=== PATIENT | female | born 1940 | race Caucasian/White ===

== ENCOUNTER 2018-07-01 15:07 | Inpatient (IN) | payer OTHER, BC ==
[~2018-07-01] VITALS: Ht 160 cm; Wt 57.2 kg
[~2018-07-01 15:07] MED LIST: NORCO 5-325 TA1 EACH PO
[2018-07-01 15:08] VITALS: BP 130/72
[2018-07-01] MEDS ORDERED: TEGRETOL XR400 MG PO (15:24)
[2018-07-01] MEDS ORDERED: [UNRECOGNIZED DRUG - REMARK] (15:26)
[2018-07-01] MEDS ORDERED: PEPCID20 MG PO (15:28)
[2018-07-01] MEDS ORDERED: BENICAR40 MG PO (15:28)
[2018-07-01] MEDS ORDERED: SPIRONOLACTONE25 M1 PO (15:28)
[2018-07-01] MEDS ORDERED: CRESTOR20 MG PO (15:29)
[2018-07-01] MEDS ORDERED: CLONIDINE HCL0.1 MG PO (15:29)
[2018-07-01] MEDS ORDERED: NORVASC2.5 MG PO (15:30)
[2018-07-01] MEDS ORDERED: LOPRESSOR100 M1 PO (15:31)
[2018-07-01 15:39] LABS: ABSOLUTE NEUTROPHILS 6.7 thou/uL (1.4-8.2); BASOPHILS 1.4 % (0.0-2.0); EOSINOPHILS 0.4 % (0.0-3.0); HEMATOCRIT 37.9 % (37.0-47.0); HEMOGLOBIN 12.2 gm/dL (12.0-15.0); LYMPHOCYTES 5.8 % (24.0-44.0); MCH 30.6 pg (26.0-34.0); MCHC 32.2 g/dL (28.0-37.0); MCV 95.2 fL (80.0-100.0); MONOCYTES 4.3 % (1.0-8.0); PLATELET COUNT 256 thou/uL (150-400); POLYS 88.1 % (36.0-66.0); RBC 3.98 mil/uL (4.20-5.00); RDW 14.9 % (10.5-14.5); WBC 7.6 thou/uL (4.0-11.0)
[2018-07-01 15:51] LABS: ANION GAP 19 mmol/L (7-16); BUN 24 mg/dL (7-18); CALCIUM 8.9 mg/dL (8.5-10.1); CHLORIDE 102 mmol/L (98-107); CO2 21 mmol/L (21-32); CREATININE 1.2 mg/dL (0.6-1.0); GLUCOSE 109 mg/dL (74-106); POTASSIUM 3.2 mmol/L (3.5-5.1); SODIUM 142 mmol/L (136-145)
[2018-07-01 15:52] LABS: URINE CLARITY SL HAZY; URINE COLOR YELLOW; URINE GLUCOSE-RANDOM* NEGATIVE (Negative); URINE KETONES 3+ (Negative); URINE PROTEIN (DIPSTICK) TRACE (Negative)
[2018-07-01 15:53] LABS: ICTOTEST (BILI CONFIRMATORY) Negative (Negative); URINE BILIRUBIN NEGATIVE (Negative); URINE BLOOD NEGATIVE (Negative); URINE LEUKOCYTES-REFLEX 1+ (Negative); URINE NITRITE-REFLEX NEGATIVE (Negative); URINE UROBILINOGEN 0.2 E.U./dl (0.2-1.0)
[2018-07-01 15:59] LABS: AMP/METHAMP Negative (Negative); BARBITURATES Negative (Negative); BENZODIAZEPINES Negative (Negative); COCAINE Negative (Negative); METHADONE Negative (Negative); OPIATES Negative (Negative); PCP Negative (Negative)
[2018-07-01 16:01] LABS: ALBUMIN 3.6 g/dL (3.4-5.0); MAGNESIUM 1.7 mg/dL (1.8-2.4); SALICYLATE 3.6 mg/dL (2.8-20.0); SGOT 26 U/L (15-37); SGPT 16 U/L (30-65); TOTAL BILIRUBIN 0.7 mg/dL (<0.1-1.0); TOTAL PROTEIN 6.7 g/dL (6.4-8.2); TROPONIN-I <0.06 ng/mL (<0.06)
[2018-07-01 16:03] LABS: AMORPHOUS URATES Moderate /LPF (None Seen); BACTERIA-REFLEX None Seen /HPF (None Seen); HYALINE CASTS 0-3 Few /LPF (None Seen); SQUAMOUS None Seen /LPF (0-3); URINE RBC 0-2 Rare /HPF (0-2)
[2018-07-01 17:20] VITALS: BP 147/90
--- NOTE | 2018-07-01 17:30 | NUR ---
AFFIDAVITS WRIITEN AND NOTORIZED BY RN, FISHING TOOL TECHNICIAN OIL WELL, SON, AND DAUGHTER
[2018-07-01 17:40] VITALS: BP 147/90
[2018-07-01 19:50] VITALS: BP 186/104
--- NOTE | 2018-07-02 04:41 | NUR ---
patients cares were assumed at 2023 when patient was brought up from ED. patient was asssessed and meds were passed and orded. Hpurly rounding was dome patient did appaer to be a sleep. when this patient first came in she was very agitated. nursing was able to calm her with in the hour. bed alarm is on and the bed is in a low and locked position
[2018-07-02 06:09] LABS: CALCIUM 8.3 mg/dL (8.5-10.1); POTASSIUM 3.3 mmol/L (3.5-5.1)
--- NOTE | 2018-07-02 08:00 | EKG ---
[place] [address] [facility] [place] [place] [address] ELECTROCARDIOGRAM REPORT Name: TOMY CASTRO Room #: 527A-A ADM IN M.R.#: [id number] Admission: 07/01/18 Attend Phys: Hardik Watt DO Discharge: Date of : 42 Report #: [id number] THIS REPORT FOR: //name// [facility] ED Test Date: 2018-07-01 Test Time: 15:50:46 Pat Name: TOMY CASTRO Department: Room: [facility] Gender: F Wire Repairer: MANJIT : 1940 Requested By: Giovanny Huddleston Order Number: [id number] MD: Hermilo Tabor Measurements Intervals [place] Rate: 79 P: 64 NE: 190 QRS: -11 QRSD: 115 T: 32 QT: 385 QTc: 442 Interpretive Statements Sinus rhythm Nonspecific intraventricular conduction delay Minimal ST elevation, diffuse leads Compared to ECG 04/30/2000 16:21:29 Intraventricular conduction delay now present ST (T wave) deviation now present Electronically Signed On 07-02-2018 8:00:01 CLINICAL TEAM LEAD by Hermilo Tabor [email or web address] <ELECTRONICALLY SIGNED> By: Hermilo Tabor MD 07/02/18 0800 1550 1550 Hermilo Tabor MD /EPI
[2018-07-02 10:49] VITALS: BP 104/63
[2018-07-02 11:30] VITALS: BP 104/63
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
--- NOTE | 2018-07-02 16:01 | NUR ---
SW spoke with pt concerning her son become her DPOA. Pt stated that she is not sure if her son would like to take care of her due to her illness. Pt stated but she would like for us to setup a meeting with her, and the son. SW will contact son concerning a meeting.
--- NOTE | 2018-07-02 16:03 | NUR ---
TAYO spoke with pt martha Kwong to schedule appointment for DPOA paperwork. The appointment is on july 03, 2018 at 3:30pm.
--- NOTE | 2018-07-02 19:47 | NUR ---
called doctor:SPOKE WITH DR. NAIR. GOT ORDERS FOR STOOL SOFTNERS AND SUPPOSITORY. THIS IS TO PROMOTE A BM. SUPPOSITORY WILL BE GIVEN Q 3DAYS. SENNA BID. IF NOT SUCESSFUL CAN CALL FOR A MAG [place] ORDER FOR LAST RESORT.
[2018-07-02 19:58] VITALS: BP 123/77
[2018-07-03 09:30] VITALS: BP 110/67
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
--- NOTE | 2018-07-03 14:23 | NUR ---
ASSUMED PT CARE AT 0715, PT WALKED HERSELF TO DINNER ROOM WITH WALKER. PT VOICES CONCERN THAT SHE WILL NOT HAVE ENOUGH MONEY FOR HER CARES. ALSO STATED SHE IS CONCERNED ABOUT BEING CONSTIPATED AND WHAT IS ON HER TRAY FOR BREAKFAST. PT HESITATED TAKING EACH AND EVERY AM PILL, THOUGH DID ONE AT A TIME. ATE OVER 50% OF BREAKFAST. NEW ORDER TO DECREASE SENNA AND TO GIVE SUPPOSITORY. PT REFUSED FOR ME TO GIVE, ALSO REFUSED A BATH/SHOWER. SEVERAL FAMILY MEMBERS VISITED TODAY ALONG WITH SW AND CLOTH GRADER. PT IS HAPPY AND VERY PLEASANT.
--- NOTE | 2018-07-03 17:57 | NUR ---
TAYO met with pt, and three adult children Jean, Varghese, and Anat concerning DPOA, and results of psycosocial assessment. TAYO explained that pt is dealing dementia that is causing cognitive delay, and thierno to this she is not making sound decision. TAYO asked if the pt is suitable to go home. The children stated there mother home is not suitable to live in. TAYO stated that she recommend that the pt be in a memory care unit due to cognition. Tayo recommended that the family think finalizing pt living will wish before she is unable sound decision. TAYO completed CBT with family. TAYO assisted family with understanding dementia. The children wanted to know the next step concerning her care. TAYO stated that Dr. Watt will schedule a follow-up appointment with the family after his assessment is completed. TAYO stated that on Friday, July 06, 2018 will need to have a discussion concerning the activation of DPOA, and the plan for discharge. TAYO will follow-up with the family, and the pt.
--- NOTE | 2018-07-03 18:06 | NUR ---
PT HAD MED SOFT BM, STILL REFUSES TO TAKE ENEMA. ATE >50% OF DINNER.
--- NOTE | 2018-07-03 19:06 | NUR ---
PT HAD A SECOOND SM SOFT BM.
[2018-07-03 20:11] VITALS: BP 105/68
--- NOTE | 2018-07-04 01:47 | NUR ---
PT WAS OBSERVED SITTING IN THE TV ROOM WATCHING THE NEWS AT THE STAT OF SHIFT.PT DENIED PAIN AT THAT TIME.PT UP WITH WALKER,STEADY ON HER FEET.PT 'S SON WAS CALLED AND SHE TALKED WITH HIM PER HER REQUEST.PT STILL TAKING HER STOOL SOFTNER,NO BM NOTED SO FAR.PT'S BP MEDS WERE HELD AT HS, BP AT THE TIME WAS 102/67.NO AGGRESSIVE BEHAVIOR NOTED FORM PT SO FAR.PT STAYED UP TILL AFTER MN BEFORE SHE RETIRED TO HER ROOM FOR THE NIGHT.ND SLEEPING ON HER BED AT THIS TIME,BREATHING NORMAL AND UNLABORED.FALL PRECAUTIONS IN PLACE WITH FREQUENT CHECKS.
[2018-07-04 07:59] VITALS: BP 108/61
--- NOTE | 2018-07-04 10:42 | NUR ---
TOWARDS POC PT A/O X3. VSS, AFEBRILE. PT CALM, COOPERATIVE. VSS, AFEBRILE. PT INTERACTING APPROPRIATELY. PT TAKE PILL ONE AT TIME AND EXPLAINED ALL THE PILLS THAT SHES TAKING. WILL CONTNUE TO MONITOR.
--- NOTE | 2018-07-04 15:06 | NUR ---
Pt participated in the "coping with fears" group at 1300. Pt was fully engaged with the group and the activities. Pt was able to identify some fears ( aging, memory loss, lose of family members, and making mistakes). Pt was able to process the roots of her fears in the group. Pt admits to stuggling with letting go of getting older and trusting her children with her affairs. Pt was able to process ways to handle these fears and the consquences of not facing fears. Pt brought up that she did not believe she had anyone to assist her with her affairs. She believed her children would not want to assist her, although she admitted to not talking to them about these identified fears. Pt was able to understand her role in not allowing others to assist her as she ages. Pt was able to process positive outcomes of facing her fears " I may be the person in my own way of handling all my things I need to get done by not asking for help.". I want to be apart of planning my future needs with the help of my children.". Pt seemed to leave the group with helpful information and further insight of her needs.
[2018-07-04 19:35] VITALS: BP 142/61
--- NOTE | 2018-07-05 04:27 | NUR ---
ASSUMED CARE AT START OF SHIFT PT SITTING IN DAY ROOM CALM AMD COOPERATIVE, NO CONCERNS VOICED. PT ALERT OREINTED TALKING IN CLEAR SENTENCES AND CLARITY.PO MEDICATION , PT SLEPT FOR 4 HOURS , UP TO BATHROOM THEN AGAIN SITTING IN DAY ROOM WATCHING TV. WILL COMTINUE WITH CURRENT PLAN OF CARE AND WILL REPORT CHANGES.
[2018-07-05 08:00] VITALS: BP 104/64
--- NOTE | 2018-07-05 10:17 | NUR ---
ASSUMED CARE AT 0700. PT A&OX4. PT SITTING IN DAY ROOM AT SHIFT CHANGE. PT VERY FRIENDLY AND INTERACTS WELL WITH STAFF. PT C/O NOT BEING ABLE TO SWALLOW PILLS. PT AGREED TO LET RN CRUSH PILLS THAT WERE CRUSHABLE AND TOOK WITH APPLESAUCE AND THE PILLS THAT ARE NOT CRUSHABLE PT TOOK ONE AT A TIME WHOLE WITH APPLESAUCE. PT SWALLOWED WITH OUT DIFFICULTY. PT IS FIXATED WITH HER BOWELS. PT WORRIES ABOUT WHAT SHE SHOULD AND SHOULD NOT EAT BECAUSE SHE IS WORRIED IT WILL MESS WITH HER BOWELS. PT STATES SHE HAS ALL SORTS OF THINGS AT HOME SHE WORRIES ABOUT WELL. WILL CONTINUE TO MONITOR PT.
--- NOTE | 2018-07-05 14:24 | NUR ---
SW was able to complete psychosocial with the Pt. Pt was engaged and willing to give most of the information. Pt stopped SW when she felt like she was being " probed" and asked to much information. Pt would apologize for not answering questions and would explain to SW that she did not like all of the questioning. Pt always remained polite during the assessment. .
[2018-07-05 21:27] VITALS: BP 100/53
[2018-07-05 22:20] VITALS: BP 100/53
--- NOTE | 2018-07-06 02:17 | NUR ---
AFTER A CORDIAL VISIT WITH DAUGHTERS, WHO ASSISTED HER WITH A SHOWER, PT OUT WITH PEERS INTERACTING AND WATCHING TV. TOOK HS MEDS PRESCRIBED, SAT UP WITH MALE PEER,TTO WATCH THE NEWS AND WEATHER, THEN WENT TO BED.
--- NOTE | 2018-07-06 10:55 | NUR ---
WOUND CONSULT; ASSESSMENT OF THIS PATIENTS LEFT HAND REALS A STABLE SCAB WITH NO S/S OF INFECTION. BILATERAL LE HAVE S/S OF LYMPH EDEMA WITH SKIN CHANGES DRY/CRUSTY SKIN. THE ENDEMA IS MINIMAL AT THIS TIME. RECOMMENDATIONS; LEFT HAND SCAB PAINT WITH BETADINE QHS BILATERL LE APPLY UREA CREAM QHS DISCUSSED WITH RENU
--- NOTE | 2018-07-06 12:12 | NUR ---
PT CAN BE A&0X3-4, THEN IMMEDIATELY EXHIBIT FORGETFULNESS AND ANXIETY ABOUT MANY APPARENT LITTLE THINGS. NEEDS FREQ ASSURANCE. QUITE WITTY AT OTHER TIMES. LARGE SKIN CONDITION ON L HAND TO BE TREATED, BLE D/T EDEMA TO BE TREATED NIGHTLY PER WOUND CARE. PT AMB W/WALKER AND ASSIST UP AND DOWN FOR SAFETY. ENCOURAGED HER, IN HER ROOM, TO USE GARCIA OR CALL OUT LOUDLY FOR NEEDS WHEN ROUNDING TIMES OCCUR AFTER THE FACT
--- NOTE | 2018-07-06 16:03 | NUR ---
TAYO spoke with pt daughter Lavonne concerning her DPOA paperwork. Lavonne stated that she would like to be the secondary due to her been a social work. TAYO stated that she will be providing her mom a copy of DPOA paperwork to look over, and setup appointment for it to be notarized.
--- NOTE | 2018-07-06 18:26 | NUR ---
RELOCATION OF ROOM: PT NEEDED TO BE MOVED, COOPERATED FULLY, BY FAITH DOCTOR TO ANOTHER ROOM D/T COMFORT SAFETY AND PLUMBING
[2018-07-06 19:43] VITALS: BP 128/72
--- NOTE | 2018-07-06 22:40 | NUR ---
ASSUMED CARE OF THE PATIENT AT 2015 PM. ALERT ET ORIENTED TO PERSON, PLACE, AND TIME. THE PATIENT WAS SITTING IN THE DAYROOM WHEN THIS METAL OR WOOD BLOCKER CAME ON DUTY. SHE TOOK HER MEDICATIONS WITHOUT ANY DIFFICULTY. WALKS WITH HER WALKER, HAS A FAIRLY STEADY GAIT. REMAINS ON 12 MINUTE CHECKS FOR HER SAFETY.
--- NOTE | 2018-07-07 05:25 | NUR ---
THE PT SLEPT 3.2 HOURS LAST NIGHT. SHE GOT UP EARLY IN THE MORNING AND WOULD NOT BE REDIRECTED BACK TO BED. STATED THAT SHE IS WORRIED ABOUT THE MEETING THAT SHE IS GOING TO HAVE TODAY. REMAINS ON 12 MINUTE CHECKS, PER UNIT PROTOCOL.
[2018-07-07 07:20] VITALS: BP 118/71
[2018-07-07 09:00] VITALS: BP 118/71
--- NOTE | 2018-07-07 09:30 | NUR ---
PT. UP ON UNIT IN DINING ROOM MOST OF SHIFT. IS VERBALIZING ANXIETY ABOUT FAMILY MEETING THIS AFTERNOON. TOOK MORNING MEDICATIONS WITH BEING CRUSHED. WOULD KEEP SAYING TO THIS R.N. "ARE YOU WATCHING? I'M TAKING MY MED. NOW." HAS BEEN PLEASANT AND COOPTERATIVE WITH STAFF AND PEERS. REFUSED SHOWER, STATING, "NO NOT TODAY I TOOK ONE A FEW DAYS AGO".
--- NOTE | 2018-07-07 15:56 | NUR ---
TAYO met with pt, [facility] and adult children concerning signing DPOA. SW was able provide information concerning DPOA, and pt was able to provide who she would like to be over her DPOA. DPOA was completed.
[2018-07-07 20:09] VITALS: BP 102/63
--- NOTE | 2018-07-08 05:10 | NUR ---
STAYED IN THE DINING ROOM LATE INTERACTING WITH OTHER PATIENTS, PT BUSY WRITING DOWN STUFF IN HER FOLDER, TOOK MEDS WITH NO DIFFICULTY, HAD LATE SNACK LAST NOC. AMBULATING WITH STANDBY ASSIST USING ROLLERWALKER. VOIDING WITH NO DIFFICULTY, NO EPISODE OF INCONTINENCE. Q 12 MIN ROUNDING DONE, MONITORED.
[2018-07-08 07:00] VITALS: BP 101/70
[2018-07-08 07:12] VITALS: BP 101/70
--- NOTE | 2018-07-08 08:30 | NUR ---
CLIENT WORRIES ABOUT MEDICATIONS AND FORGETS AFTER BEING TOLD WHAT MED IS AND WHAT IS IT FOR. SHE WANTS THE NURSE TO WATCH HER TAKE HER MEDS. CLIENT WORRIES ALSO ABOUT BOWEL MOVEMENTS. CLIENT HAS +2 EDEMA TO LE. LE BILATERAL HAVE DRY FLAKEY SKIN, REDDNESS THAT IS BLANCHABLE, NOT WARM TO TOUCH. LUNGS CLEAR.
[2018-07-08 11:14] VITALS: BP 101/70
--- NOTE | 2018-07-08 13:58 | NUR ---
PICTURES AND MEASUREMENTS OF PATIENT LEFT TOP HAND SCABBED WOUND MEASURING 1 CM TIMES 2 CM PLACED IN CHART AND PROGESS NOTES
[2018-07-08 15:19] VITALS: BP 101/70
--- NOTE | 2018-07-08 16:18 | NUR ---
TAYO called in spoke with the pt son Varghese Medina concerning my not elgible for Medicaid due to asset. Pt wll have to private pay at nursing facility. Varghese that he will follow-up with his sister, and contact TAYO today.
[2018-07-08 19:55] VITALS: BP 107/70
[2018-07-08 22:10] VITALS: BP 107/70
--- NOTE | 2018-07-09 03:09 | NUR ---
PT UP IN DAY AREA THIS PM, WATCHING TV. COPERATIVE WITH HS MEDS. BP 107/70 MEDS HELD FOR BP. EVENING SNACK. BED AT 2230 AND SLEPT UNTIL 0230. UP TO BR WITH ASSIST. RETURNED TO BED AND REDIRECTED THAT TOO EARLY TO BE UP IN DAY AREA. RETURNED TO BED.
--- NOTE | 2018-07-09 10:53 | NUR ---
Date of Admission: 07/01/18 Date of Activity Therapy Assessment: 07/04/18 Activity Goal: Self-esteem development, assertive communication skills, independent living skills. Initial Goal: 1 Group activity/day Weekly progress towards goal: On track Group participation level: Moderate Behaviors observed: Perseverating on BM, diet, and medications. Often diverts group discussion back to these topics. Redirectable after multiple attempts. Plan: No change towards goal
--- NOTE | 2018-07-09 13:18 | NUR ---
PATIENT IS ALERT, UP AND OUT ON THE UNIT, SHE IS FORGETFUL, AND INTERMITTENT CONFUSION NOTED. AMBULATE WITH ASSIST OF ROLLER WALKER. PATIENT IS EATING MEALS AND DRINKING FLUID WELL. PATIENT DENIES SUICIDAL AND HOMOCIDAL IDEATION. "I DON'T THINK I AM DEPRESSED" WHEN ASKED ABOUT DEPRESSION/ANXIETY. NO AGITATION OR AGGRESSIVE BEHAVIOR NOTED. PATIENT TOOK ALL MORNING MEDICATION IN [facility] S[employer]. PATIENT IS FIXIATED ON KNOWING WHAT EACH MEDICATION DOES. AFFECT IS BRIGHT, MOOD IS LABILE, HAPPY. PATIENT GOAL FOR TODAY IS TO RELAX AND SEE HER CHILDREN. NO SIGN OF ACUTE DISTRESS NOTED, WILL MONITOR FOR SAFETY.
[2018-07-09 14:13] VITALS: BP 138/73
--- NOTE | 2018-07-09 15:35 | NUR ---
TAYO called in spoke with pt son Varghese concerning her discharge date on july 14, 2018. TAYO explained that pt does not qualify for Medicaid due to asset that is above poverty level. Varghese stated that he looking at places for private pay. TAYO will follow-up with family upon discharge.
[2018-07-09 19:32] VITALS: BP 116/60
[2018-07-09 22:16] VITALS: BP 116/60
--- NOTE | 2018-07-10 03:00 | NUR ---
PT OUT IN DAY ROOM MUCH OF THE EVENING INTERACTING WITH STAFF AND WATCHING TV. REMAINS CURIOUS ABOUT MEDS AND CONTINUES TO LIST THEM WHEN GIVEN. DENIES FEELING DEPRESSED, AND IS ACTUAALY ANIMATED AND INTERACTIVE. SLEPT WELL THROUGH THE NIGHT.
[2018-07-10 07:28] VITALS: BP 107/63
[2018-07-10 07:30] VITALS: BP 107/63
--- NOTE | 2018-07-10 09:00 | NUR ---
CLIENT UP IN CHAIR IN DINNING ROOM. VISITING WITH STAFF AND OTHER CLIENTS. SMILING WITH CONVERSATIONS.
--- NOTE | 2018-07-10 14:21 | NUR ---
CLIENT HAS BEEN IN DINNING ROOM ALL DAY EXCEPT FOR BATHROOM BREAKS.
--- NOTE | 2018-07-10 17:40 | NUR ---
ASSISTED CLIENT TO BATHROOM AFTER DINNER. HAD VERY LARGE FORMED BM. PLACED NEW BRIEF ON AFTER ASSISTED WITH WIPING.
[2018-07-10 20:42] VITALS: BP 105/73
--- NOTE | 2018-07-10 21:58 | NUR ---
ASSUMED CARE OF THE PATIENT AT 2015PM. SHE IS SITTING IN THE DAYROOM WATCHING TV. TOOK HER MEDICATIONS WITHOUT DIFFICULTY, ASKS WHAT EACH PILL IS, BUT SHE TAKES THEM WITHOUT DIFFICULTY. REMAINS ON 12 MINUTE CHECKS.
[2018-07-11 08:48] VITALS: BP 137/68
--- NOTE | 2018-07-11 11:02 | NUR ---
ASSUMED CARE AT 0700. PATIENT IS ALERT AND ORIENTED, BUT FORGETFUL. UP TO THE DINING ROOM FOR BREAKFAST. PATIENT TOOK MEDS WITHOUT DIFFICULTY. CREAM APPLIED TO LEGS. PATIENT USES WALKER TO AMBULATE. FALL AND SAFETY PROTOCOLS IN PLACE. DENIES ANY PAIN AT THIS TIME. PATIENT WANDERS AROUND THE UNIT WITH HER WALKER. PATIENT CALLED HER SON THIS A.M. HE IS PLANNING ON VISITING LATER TODAY. WILL CONTINUE TO MONITER.
--- NOTE | 2018-07-11 14:53 | NUR ---
SW met with Pt in the dining area. Pt just had finished eating lunch. SW introduced self and socialized with Pt. SW discussed group meeting with Pt and invited her to participate. Pt agreed and joined group. Pt was fully engaged and participated in group activities. Pt was really talkative and expressed her thoughts. Pt had to be redirected each time SW asked/discussed a question. Pt stated although she feels good about her "accomplishments, but people think very little of what I did". Pt was reminded that the purpose of this activity is to utilize what she was able to accomplish in the past to make her feel confident and waht she is able to do now and/or able to try to do new things successfully even if it's little things. TAYO reminded Pt that it doesn't matter how long the process takes to do new things, but what's important is that she is able to learn and finish what she starts. Pt was really receptive of the information shared. Pt was pulled out of group by Nurse Conte and returned afterward. Pt talked about her children and late and how she worries about a lot of things. Pt struggles with her memory loss. SW briefly educated Pt of the stages of aging and how being aged and illnesses affect our ability to continue to the things we used to do well and/or to do new things. SW reminded Pt of the imporatnce of focusing on what she is able to do now and encouraged her to think positively. Pt seemed to have an understanding of hwat was discussed in group. Pt took notes and stated that group was "very helpful". Pt agreed to meet with TAYO on 07/12/18 to continue to express her thoughs and emotions.
[2018-07-11 19:54] VITALS: BP 104/56
--- NOTE | 2018-07-11 22:30 | NUR ---
ASSUMED CARE OF THE PATIENT AT 2000 PM. ALERT ET ORIENTED X 3, SOMETIMES SHE IS VERY FORGETFUL. WALKS WITH A WALKER AND SHE IS SBA. TOOK ALL OF HER MEDICATION WITHOUT ANY DIFFICULTY. DENIES SI AND HI, A/V HALLUNICATIONS. REMAINS ON 12 MINUTE CHECKS FOR HER SAFETY.
[2018-07-12 08:11] VITALS: BP 119/51
[2018-07-12 13:49] VITALS: BP 119/51
--- NOTE | 2018-07-12 15:24 | NUR ---
SW visited with Pt in the dining area and invited her to participate in group after finishing her lunch. Pt stated that her son will call her soon and wants to speak with him first. Pt talked to two of her sons and the entire time and did not meet with SW afterward because it was Rec therapist group time. SW will follow up the following day.
--- NOTE | 2018-07-12 15:47 | NUR ---
ASSUMED CARE AT 0700. PT IS ALERT & ORIENTED, BUT REMAINS FORGETFUL AT TIMES. SPENT MAJORITY OF SHIFT SITTING IN DAYROOM AND ENGAGED IN INTERACTION W/STAFF. PT COMPLIED WITH MEDS, BUT DID JOURNAL WHAT MEDS SHE WAS GIVEN AND WOULD JOURNAL ABOUT HER TREATMENT. REQUIRES REASSURANCE & SUPPORT. DENIED ANY PAIN THIS SHIFT. FALL & SAFETY PROTOCOLS IN PLACE. PT W/NO AGGRESSIVE BEHAVIOR. COOPERATIVE & PLEASANT W/CHEERFUL MOOD, BUT ANXIOUS AT TIMES. NO SI/HI VOICED. CREAM APPLIED TO LEGS BILATERALLY ORDERED. PT USES WALKER TO AMBULATE. ATE MEALS IN DAYROOM. VOIDED INDEPENDENTLY. FAMILY VISITED. NO ACUTE DISTRESS NOTED. WILL CONTINUE TO MONITOR REMAINDER OF SHIFT.
[2018-07-12 19:32] VITALS: BP 101/55
--- NOTE | 2018-07-12 22:28 | NUR ---
ASSUMED CARE OF THE PATIENT AT 2000 PM. THE PATIENT HAS BEEN SITTING IN THE DAYROOM SINCE THIS HAIR WEAVER CAME ON DUTY. TOOK HER MEDICATION WITHOUT ANY DIFFICULTY. DENIES SI AND HI, ANXIETY, DEPRESSION, RACING THOUGHTS AND NIGHTMARES. IS VERY PARANOID ABOUT HER MEDICATIONS. WALKS WITH A WALKER, HAS A FAIRLY STEADY GAIT. REMAINS ON 12 MINUTE CHECKS.
[2018-07-13 07:00] VITALS: BP 101/53
--- NOTE | 2018-07-13 10:40 | NUR ---
WOUND CARE FOLLOW UP; ASSESSMENT FOLLOWS; LE'S SHOWS IMPROVEMENT WITH S/S RE; CHRONIC EDEMA. THE LEFT HAND SCAB IS UNCHANGED. RECOMMENDATION; CONTINUE CURRENT TREATMENT. NO NEED TO FOLLOW THIS PATIENT. NO ACUTE WOUND OR ANY DRAINAGE. RN PRESENT
--- NOTE | 2018-07-13 15:34 | NUR ---
ASSUMED PT CARE AT 0700H. PT ALERT AND AWAKE. PT HAS NO S/S OF DISTRESS. PT CONCERN OF BEING CONSTIPATED. PT HAS ORDER FOR SENNA. PER STAFF REPORT PT HAD WELL FORMED STOOL. PT TOOK CARBAMAZEPINE MED AND REFUSED ALL OTHER MEDS EVEN AFTER SEVERAL TIMES WITH DIFFERENT STAFF TO TAKE MEDS. PT INSISTS ON REFUSING. PHYSICIAN NOTIFIED. PT FAMILY CURRENTLY VISITING NOTIFIED. PT L HAND SCAB C/D/I. PT BILATERAL LEGS DRY. PT AWAITING EVALUATION FROM [facility]. PT CONTINUES TO BE MONITORED Q 12MINS FOR SAFETY.
--- NOTE | 2018-07-13 16:42 | NUR ---
JANES met with Rita Altman from [facility] concerning admission of Pt. Ms. Altman stated Pt can be admitted upon discharge. Janes will need to complete some paperwork Ms. Altman is sending over. Janes gave Ms. Altman [employer] card sna informed she is SW on staff during the week. JANES informed Ms. Altman of the pending discharge date of 07/15/18.
[2018-07-13 19:15] VITALS: BP 132/82
[2018-07-13 23:11] VITALS: BP 132/82
--- NOTE | 2018-07-14 03:13 | NUR ---
PT CONTINUES TO OBSESS ABOUT MEDS. INSISTS ON STAFF WRITING THEM DOWN AND DESCRIBING WHAT THEY ARE FOR AND HOW THEY WORK. AFTER CAREFUL EXPLANATION, PT ABLE TO TAKE MEDS PRESCRIBED. SHOWING SOME RESISTANCE TO UNIT RULES TO WHAT SHE IS PERMITTED TO DO. SHORT WITH STAFF WHEN REDIRECTED. SLEPT WELL AFTER EVENING SNACK.
[2018-07-14 07:23] VITALS: BP 119/63
[2018-07-14 08:00] VITALS: BP 119/63
--- NOTE | 2018-07-14 11:06 | NUR ---
ASSUMED PT CARE AT 0700 REPORT RECEIVED FROM NURSE. PT IS AOX3 ANXIOUS AND ASKED ME TO DOCUMENT ON A PIECE OF PAPER ALL THE CARE I AM GOING TO PROVIDE TO HER TODAY. PT WALKS WITH WALKER HELP. GAIT SLOUCHED. PT ATE BREAKFAST COMPLETELY. MEDICATIONS ADMINISTERED TO PT AFTER LONG CONVERSATION WITH PT. SKIN CREAM NOT GIVEN PT REFUSED . SAW PT. PT TALKED TO SON AVER THE PHONE AT AROUND 1000AM. PT DAUGHTER VISITED AT 11:00 SITTING IN ACTIVITY ROOM WITH PT. PT HAD A BOWEL MOVEMENT THIS AM. HENRIQUE CONTINUE TO MONITOR PT.
--- NOTE | 2018-07-14 18:11 | NUR ---
PT SPENT THE WHOLE DAY MOSTLY IN THE ACTIVITY ROOM CHATTING WITH OTHERS. PT HAD GOOD APPETITE.
[2018-07-14 19:37] VITALS: BP 111/69
--- NOTE | 2018-07-15 05:37 | NUR ---
RESTED GOOD, STILL VERY PRE OCCUPIED ABOUT PRUNE JUICE TO HOW MANY MINUTES IT NEEDS TO BE WARMED. CONTINUE TO WRITE HER MEDS/INDOICATIONS IN HER FOLDER. COOPERATIVE, NO AGGRESSIVE BEHAVIOR NOTED, BILAT STILL RED WITH EDEMA AND VERY DRY.
[2018-07-15 09:33] VITALS: BP 136/69
[2018-07-15] MEDS ORDERED: ALDACTONE50 MG PO (11:11)
[2018-07-15] MEDS ORDERED: LOPRESSOR25 PO (11:11)
[2018-07-15] MEDS ORDERED: TEGRETOL XR100 MG PO (11:12)
[2018-07-15] MEDS ORDERED: NAMENDA 5 MG TAB5 M1 PO (11:13)
[2018-07-15] MEDS ORDERED: AQUA CARE71 GM TOP (11:14)
[2018-07-15] MEDS ORDERED: PEPCID20 MG PO (11:14)
[2018-07-15] MEDS ORDERED: B-12500 MCG PO (11:14)
--- NOTE | 2018-07-15 11:43 | NUR ---
PATIENT IS ALERT, FORGETFUL, UP AND OUT ON THE UNIT. AMBULATES WITH ASSIST OF ROLLER WALKER. PATIENT TOOK ALL HER MORNING MEDICATION WHOLE WITHOUT DIFFICULTY. PATIENT IS EATING MEALS, AND DRINKING FLUID WELL. PATIENT DENIES SUCIDIAL AND HOMOCIDAL IDEATION. PATIENT IS FORGETFUL, AFFECT IS BRIGHT, MOOD IS HAPPY BECUASE SHE IS DISCHARGING TODAY SHE SAID. NO AGITATION OR AGGRESSIVE BEHAVIOR NOTED, PATIENT DISCHARGED HOME TODAY BY DR. LAMBERT. DISCHARGE INSTRUCTIONS, AND MEDICATION LIST REVIEWED WITH PATIENT AND HER SON-(KIM)-DPOA THEY VERBALIZES UNDERSTANDING, AND SIGNED THE DISCHARGE PAPERWORK. PATIENT AWAITING HER DAUGHTER BEFORE THEY COULD LEAVE THE UNIT.
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
== END 2018-07-15 12:59 | disposition home or self-care (01) | DRG 56 ==
LOC: ER 15:07 → EROBS 16:44 → SBH 16:44 → EROBS 16:44 → SBH 19:21
PROVIDERS: Emergency Medicine; ADMIT Psychiatry & Neurology Psychiatry
DX: G30.9 Alzheimer's disease, unspecified (principal); E43 Unspecified severe protein-calorie malnutrition; N39.0 Urinary tract infection, site not specified; F02.81 Dementia in other diseases classified elsewhere, unspecified severity, with behavioral disturbance; G40.909 Epilepsy, unspecified, not intractable, without status epilepticus; I10 Essential (primary) hypertension; E87.6 Hypokalemia; K74.60 Unspecified cirrhosis of liver; E53.8 Deficiency of other specified B group vitamins; E78.5 Hyperlipidemia, unspecified; K59.00 Constipation, unspecified; I95.9 Hypotension, unspecified; R26.81 Unsteadiness on feet; Z68.22 Body mass index [BMI] 22.0-22.9, adult; Z86.73 Personal history of transient ischemic attack (TIA), and cerebral infarction without residual deficits; Z79.899 Other long term (current) drug therapy
CPT/HCPCS: 10880